=== PATIENT | female | born 1960 | race African-American/Black ===

== ENCOUNTER 2016-11-10 13:01 | Emergency (ER) | payer OTHER ==
[~2016-11-10] VITALS: Ht 162.6 cm; Wt 113.8 kg
[~2016-11-10 13:01] MED LIST: ALBUTEROL2.5 MG/0.5 INH; APAP650; ASPIRIN325 PO; BUPROPION HCL150 MG PO; CALCIUM-VITAMI1 EAC1 PO; CARVEDILOL3.125 MG; CARVEDILOL3.125 MG PO; CIPROFLOXACIN500 M1 PO; CLONAZEPAM 1 MG1 M1 PO; COLACE100 MG; DARVOCET-N 1001 EACH PO; DUONEB 2.5-0.5 M3 ML INH; EFFIENT10 MG; HCTZ; HUMALOG100 UNIT/1 SUBQ; HYDROXYZINE HCL50 MG PO; INDOMETHACIN 5050 M1 PO; LAMISIL AT 1% C12 G1 TP; LANTUS SC; LISINOPRIL10 MG PO; LISINOPRIL5 MG PO; LOSARTAN-HCTZ1 EAC3 PO; MYRBETRIQ25 MG PO; NASAL SPRAY30 ML NS; NORVASC 5 MG TAB5 MG PO; NOVOLOG100 UNIT/1 SQ; NYSTATIN 1100000 U/M PO; NYSTATIN-TRIAMC15 GM TOP; PROVENTIL HFA6.7 G1 INH; SIMVASTATIN40 MG; TESSALON PERLE100 MG PO; TOUJEO SOL300 UNIT/1 SQ; TRAMADOL 50 MG50 MG; TRIAMCINOLONE A80 G2 TOP; WELLBUTRIN SR200 MG PO; ZANTAC 150MG T150 MG PO; ZPAK PO
[2016-11-10 14:26] LABS: URINE BILIRUBIN NEGATIVE (Negative); URINE BLOOD 1+ (Negative); URINE COLOR YELLOW; URINE GLUCOSE-RANDOM* 3+ (Negative); URINE KETONES NEGATIVE (Negative); URINE NITRITE NEGATIVE (Negative); URINE PROTEIN (DIPSTICK) 2+ (Negative); URINE SPECIFIC GRAVITY 1.015 (1.003-1.035); URINE UROBILINOGEN 0.2 E.U./dl (0.2-1.0)
[2016-11-10 14:36] LABS: SQUAMOUS >10 Many /LPF (0-3)
[2016-11-10 14:37] LABS: BACTERIA >30 Many /HPF (None Seen); CASTS None Seen /LPF (None Seen); CRYSTALS None Seen /LPF (None Seen); URINE RBC 3-10 Few /HPF (0-2); URINE WBC >25 Many /HPF (0-5); YEAST Present (None Seen)
[2016-11-10 14:38] LABS: WBC CLUMPS Few (None Seen)
[2016-11-10 14:44] LABS: ABSOLUTE NEUTROPHILS 5.3 thou/uL (1.4-8.2); BASOPHILS 0.4 % (0.0-2.0); EOSINOPHILS 2.7 % (0.0-3.0); HEMATOCRIT 40.3 % (37.0-47.0); HEMOGLOBIN 13.6 gm/dL (12.0-15.0); LYMPHOCYTES 25.1 % (24.0-44.0); MCH 27.9 pg (26.0-34.0); MCHC 33.8 g/dL (28.0-37.0); MCV 82.4 fL (80.0-100.0); MONOCYTES 6.5 % (1.0-8.0); PLATELET COUNT 211 thou/uL (150-400); POLYS 65.3 % (36.0-66.0); RBC 4.89 mil/uL (4.20-5.00); RDW 13.3 % (10.5-14.5); WBC 8.2 thou/uL (4.0-11.0)
[2016-11-10 14:45] LABS: MANUAL DIFF NO
[2016-11-10 15:09] LABS: ALBUMIN 2.5 g/dL (3.4-5.0); ALKALINE PHOSPHATASE 165 U/L (46-116); ANION GAP 6 mmol/L (7-16); BUN 23 mg/dL (7-18); CALCIUM 9.6 mg/dL (8.5-10.1); CHLORIDE 98 mmol/L (98-107); CO2 29 mmol/L (21-32); DIRECT BILIRUBIN < 0.1 mg/dL (<0.1-0.3); POTASSIUM 3.7 mmol/L (3.5-5.1); SGOT 19 U/L (15-37); SGPT 31 U/L (30-65); SODIUM 133 mmol/L (136-145); TOTAL BILIRUBIN 0.4 mg/dL (<0.1-1.0); TOTAL PROTEIN 6.8 g/dL (6.4-8.2)
[2016-11-10 15:20] LABS: GLUCOSE 640 mg/dL (74-106)
[2016-11-10] MEDS ORDERED: CHILDREN'S ASPI81 MG PO (16:05)
[2016-11-10] MEDS ORDERED: LIPITOR80 MG PO (16:06)
[2016-11-10] MEDS ORDERED: COREG25 MG PO (16:08)
[2016-11-10] MEDS ORDERED: CLEOCIN T60 M1 TP (16:23)
[2016-11-10] MEDS ORDERED: CATAPRES0.2 MG PO (16:24)
[2016-11-10] MEDS ORDERED: GYNE-LOTRIMIN-745 GM TOP (16:26)
[2016-11-10] MEDS ORDERED: KEFLEX500 MG PO (16:44)
[2016-11-10 17:35] VITALS: BP 137/77
== END 2016-11-10 17:37 | disposition home or self-care (01) ==
LOC: ER 13:01
PROVIDERS: Emergency Medicine
DX: E11.65 Type 2 diabetes mellitus with hyperglycemia (principal); N39.0 Urinary tract infection, site not specified; I10 Essential (primary) hypertension; K21.9 Gastro-esophageal reflux disease without esophagitis; Z98.890 Other specified postprocedural states; Z88.5 Allergy status to narcotic agent; Z88.8 Allergy status to other drugs, medicaments and biological substances; Z79.4 Long term (current) use of insulin

== ENCOUNTER 2017-05-26 01:14 | Inpatient (IN) | payer OTHER ==
[~2017-05-26] VITALS: Ht 152.4 cm; Wt 112.8 kg
[2017-05-26] VITALS (8 sets, daily range): BP systolic 142–248; BP diastolic 63–145
--- NOTE | ~2017-05-26 | EKG ---
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
--- NOTE | ~2017-05-26 | EKG ---
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 : 1960 Requested By: Forrest Murphy Order Number: [id number] MD: Brock Corona Measurements Intervals [place] Rate: 95 P: 71 ND: 148 QRS: 60 QRSD: 93 T: 241 QT: 378 QTc: 475 Interpretive Statements Sinus rhythm Probable left atrial enlargement Probable anteroseptal infarct, age indeterminate Baseline wander in lead(s) V2 Compared to ECG 05/26/2017 01:52:09 No significant changes Electronically Signed On 05-26-2017 17:35:24 CDT by Brock Corona [email or web address] <ELECTRONICALLY SIGNED> By: Brock Corona MD, [facility] 05/26/17 1735 1440 1440 Brock Corona MD, [facility] /EPI
--- NOTE | ~2017-05-26 | HC ---
[facility] [address] CONSULTATION Name: BENI STRONG Room #: 201-P [facility] IN M.R.#: [id number] Admission: 05/26/17 Attend Phys: Asuncion Trimble Discharge: 05/28/17 Date of : 64 Report #: [id number] THIS REPORT FOR: //name// CC: SYDNEY physician/PCP Rudi Trimble REASON FOR CONSULTATION: Edema. REASON FOR PRESENTATION: Abdominal pain. HISTORY OF PRESENT ILLNESS: A 56-year-old with extensive past medical history including coronary artery disease status post stent placement; diabetes mellitus, long-term; and hypertension. She is also known to have diabetic retinopathy. She presented to the Emergency Room, complaining of abdominal pain and swelling. She also reported to chest congestions and wheezing. She was found to have an elevated blood pressure with all stigmata of diabetic retinopathy including +3 proteinuria, extremely elevated blood sugar, elevated cholesterol with low albumin at 1.7, all suggestive of diabetic nephropathy. Kidney function remains stable at 1.3. She tells me that she had been told in the past that she had mild kidney dysfunction at [facility]. The patient recently reported a visit to [facility], for which she had issues with a fibroid tumor. Her blood pressure medications were adjusted accordingly. It does look like that she ran out of her medications for about a week or so and she presented with hypertensive urgency. PAST MEDICAL HISTORY: 1. Hypothyroidism. 2. Long-standing diabetes mellitus with diabetic retinopathy. 3. Coronary artery disease. 4. Hypertension. 5. Noncompliance. MEDICATIONS: 1. Amlodipine. 2. Insulin. 3. Losartan/hydrochlorothiazide. 4. Atorvastatin. 5. Clindamycin. 6. Clonidine. ALLERGIES: SIMVASTATIN. SOCIAL HISTORY: She denies drug or alcohol abuse. FAMILY HISTORY: Very significant for very strong diabetes mellitus and hypertension. [facility] [address] [place] [address] CONSULTATION Name: BENI STRONG Room #: 201-P DIS IN M.R.#: [id number] Admission: 05/26/17 Attend Phys: Asuncion Trimble Discharge: 05/28/17 Date of : 64 Report #: [id number] REVIEW OF SYSTEMS: CONSTITUTIONAL: Weight gain. PULMONARY: Significant for wheezing. CARDIOVASCULAR: Significant for lower extremity edema. GASTROINTESTINAL: No nausea or vomiting. GENITOURINARY: No frequency, no urgency. SKIN: No rash or ulcerations. PHYSICAL EXAMINATION: GENERAL: She is alert, oriented. VITAL SIGNS: Pulse is 99: Blood pressures is 248/145. HEAD AND NECK: No jugular venous distention, no bruit or thyromegaly. CHEST: Clear to auscultation bilaterally. CARDIOVASCULAR: Regular with no rub. ABDOMEN: Soft, nontender. LOWER EXTREMITIES: +4 edema. LABORATORY DATA: Laboratory values reviewed. Creatinine stable at 1.3. Chest x-ray reviewed. ASSESSMENT, IMPRESSION AND PLAN: 1. Diabetic nephropathy. 2. Low albumin. 3. Fluid overload due to diabetic nephropathy. 4. Hypertension. 5. Diabetes mellitus. 6. Noncompliance. The picture is all consistent with diabetic nephropathy. 7. See my orders. We will augment her antiproteinuric regimen including losartan. 8. Aggressive diuresis. 9. Low salt. 10. Daily evaluate. 11. Check hemoglobin A1c. 12. We will continue to follow along and add other diuretics if needed. <ELECTRONICALLY SIGNED> By: Gisela Rubio MD 05/30/17 0641 1032 1232 Gisela Rubio MD /nt
--- NOTE | ~2017-05-26 | 2DMMODE ---
[facility] [address] [place] [address] 2 D/M-MODE ECHOCARDIOGRAM Name: BENI STRONG Room #: 201-P ADM IN M.R.#: [id number] Admission: 05/26/17 Attend Phys: Asuncion Ceron Discharge: Date of : 64 Date of Service: 05/26/17 1119 Report #: [id number] THIS REPORT FOR: //name// APPROVED REPORT Study performed: 05/26/2017 09:47:07 EXAM: Comprehensive 2D, Doppler, and color-flow Echocardiogram Patient Location: Echo lab Room #: 201 Status: routine BSA: 2.14 HR: 93 bpm BP: 191/107 mmHg Rhythm: NSR Other Information Study Quality: Adequate Indications Diabetes Hypertension/HDD 2D Dimensions RVDd: 38.14 mm LVEF(%): 56.98 (>50%) IVSd: 17.58 (7-11mm) LVOT Diam: 19.31 (18-24mm) LVDd: 46.29 mm PWd: 15.91 (7-11mm) Ascending Ao: 32.86 (22-36mm) LVDs: 32.49 (25-40mm) Aortic Root: 28.92 mm IVC: 13.00 mm Escoto's LVEF: 56.98 % Volumes Left Atrial Volume (Systole) Single Plane 4CH: 65.58 mL Single Plane 2CH: 63.27 mL LA ESV Index: 32.00 mL/m2 Aortic Valve AoV Peak David.: 2.21 m/s AO Peak Gr.: 30.72 mmHg LVOT Max P.32 mmHg LVOT Max V: 1.15 m/s DILIP Vmax: 1.53 cm2 Mitral Valve E/A Ratio: 0.9 [facility] [address] [place] [address] 2 D/M-MODE ECHOCARDIOGRAM Name: [facility] Room #: 201-P [facility] IN .R.#: [id number] Admission: 05/26/17 Attend Phys: Asuncion Ceron Discharge: Date of : 64 Date of Service: 05/26/17 1119 Report #: [id number] Decel. Time: 150.55 ms MV E Max David.: 0.86 m/s MV A David.: 0.91 m/s MV PHT: 43.66 ms IVRT: 101.50 ms Pulmonary Valve PV Peak David.: 1.10 m/s PV Peak Gr.: 4.88 mmHg Tricuspid Valve TR Peak David.: 2.90 m/s RAP Estimate: 5.00 mmHg TR Peak Gr.: 33.56 mmHg PA Pressure: 39.00 mmHg Left Ventricle The left ventricle is normal size. Moderate concentric left ventricular hypertrophy. The left ventricular systolic function is normal. LVEF is 55-60%. Mild diastolic dysfunction is present (impaired relaxation pattern). Right Ventricle The right ventricle is normal size. The right ventricular systolic function is normal. Atria Left atrium is dilated. Right atrium is dilated. Aortic Valve The Aortic valve is sclerotic. No aortic regurgitation is present. There is no aortic valvular stenosis. Mitral Valve Mitral valve leaflets are mildly thickened. Mild mitral regurgitation. No evidence of mitral valve stenosis. Tricuspid Valve The tricuspid valve is normal in structure. Mild tricuspid regurgitation. Estimated PAP 39 mmHg. Pulmonic Valve The pulmonary valve is normal in structure. There is no pulmonic valvular regurgitation. Great Vessels The aortic root is normal in size. The ascending aorta is normal in size. IVC is normal in size and collapses >50% with [facility] [address] [place] [address] 2 D/M-MODE ECHOCARDIOGRAM Name: [facility] Room #: 201-P [facility] IN M.R.#: [id number] Admission: 05/26/17 Attend Phys: Asuncion Ceron Discharge: Date of : 64 Date of Service: 05/26/17 1119 Report #: [id number] inspiration. Pericardium There is no pericardial effusion. <Conclusion> The left ventricle is normal size. LVEF is 55-60%. Left atrium is dilated. Right atrium is dilated. The Aortic valve is sclerotic. Mitral valve leaflets are mildly thickened. Mild mitral regurgitation. The tricuspid valve is normal in structure. Mild tricuspid regurgitation. Estimated PAP 39 mmHg. The pulmonary valve is normal in structure. There is no pericardial effusion. <ELECTRONICALLY SIGNED> By: Saroj Watt MD 05/26/17 1119 1119 111 Saroj Watt MD /INF
[~2017-05-26 01:14] MED LIST changes: +CATAPRES0.2 MG PO; +CHILDREN'S ASPI81 MG PO; +CLEOCIN T60 M1 TP; +COREG25 MG PO; +GYNE-LOTRIMIN-745 GM TOP; +KEFLEX500 MG PO; +LIPITOR80 MG PO
[2017-05-26 01:53] LABS: URINE BILIRUBIN NEGATIVE (Negative); URINE BLOOD 1+ (Negative); URINE CLARITY CLEAR; URINE COLOR YELLOW; URINE GLUCOSE-RANDOM* 3+ (Negative); URINE KETONES NEGATIVE (Negative); URINE LEUKOCYTES-REFLEX NEGATIVE (Negative); URINE NITRITE-REFLEX NEGATIVE (Negative); URINE PROTEIN (DIPSTICK) 3+ (Negative); URINE SPECIFIC GRAVITY 1.015 (1.005-1.035); URINE UROBILINOGEN 0.2 E.U./dl (0.2-1.0)
[2017-05-26 02:09] LABS: BACTERIA-REFLEX None Seen /HPF (None Seen); CASTS None Seen /LPF (None Seen); CRYSTALS None Seen /LPF (None Seen); MUCUS None Seen strn/LPF (None Seen); SQUAMOUS None Seen /LPF (0-3); URINE RBC 0-2 Rare /HPF (0-2); URINE WBC-REFLEX None Seen /HPF (0-5)
[2017-05-26 02:12] LABS: ABSOLUTE NEUTROPHILS 3.9 thou/uL (1.4-8.2); BASOPHILS 0.5 % (0.0-2.0); EOSINOPHILS 1.7 % (0.0-3.0); HEMATOCRIT 36.3 % (37.0-47.0); HEMOGLOBIN 12.2 gm/dL (12.0-15.0); LYMPHOCYTES 30.3 % (24.0-44.0); MCH 27.8 pg (26.0-34.0); MCHC 33.7 g/dL (28.0-37.0); MCV 82.4 fL (80.0-100.0); MONOCYTES 10.5 % (1.0-8.0); PLATELET COUNT 228 thou/uL (150-400); RBC 4.41 mil/uL (4.20-5.00); RDW 13.2 % (10.5-14.5); WBC 6.9 thou/uL (4.0-11.0)
[2017-05-26 02:16] LABS: AMP/METHAMP Negative (Negative); BARBITURATES Negative (Negative); BENZODIAZEPINES Negative (Negative); COCAINE Negative (Negative); METHADONE Negative (Negative); OPIATES Negative (Negative); PCP Negative (Negative)
[2017-05-26 02:23] LABS: CALCIUM 8.7 mg/dL (8.5-10.1); CREATININE 1.3 mg/dL (0.6-1.0); POTASSIUM 3.8 mmol/L (3.5-5.1)
[2017-05-26 02:27] LABS: APTT 26.8 Seconds (24.5-32.8); PROTIME 9.9 Seconds (9.3-11.4)
[2017-05-26 02:29] LABS: ALBUMIN 1.7 g/dL (3.4-5.0); MAGNESIUM 1.7 mg/dL (1.8-2.4); TOTAL BILIRUBIN 0.2 mg/dL (<0.1-1.0); TOTAL PROTEIN 5.6 g/dL (6.4-8.2); TROPONIN-I 0.04 ng/mL (<0.06)
[2017-05-26 08:19] LABS: CHOLESTEROL 373 mg/dL (<200); HDL CHOLESTEROL 62 mg/dL (>40); LDL CHOLESTEROL 263 mg/dL (<100); TRIGLYCERIDE 240 mg/dL (<150); VLDL 48 mg/dL (<40)
[2017-05-26 12:34] LABS: URINE BILIRUBIN NEGATIVE (Negative); URINE BLOOD TRACE (Negative); URINE CLARITY CLEAR; URINE COLOR YELLOW; URINE GLUCOSE-RANDOM* 3+ (Negative); URINE KETONES NEGATIVE (Negative); URINE LEUKOCYTES NEGATIVE (Negative); URINE NITRITE NEGATIVE (Negative); URINE PROTEIN (DIPSTICK) 3+ (Negative); URINE UROBILINOGEN 0.2 E.U./dl (0.2-1.0)
[2017-05-26 12:47] LABS: BACTERIA 1-9 Few /HPF (None Seen); CRYSTALS None Seen /LPF (None Seen); HYALINE CASTS 0-3 Few /LPF (None Seen); SQUAMOUS None Seen /LPF (0-3); URINE RBC 0-2 Rare /HPF (0-2); URINE WBC 0-5 Rare /HPF (0-5)
[2017-05-26 12:59] LABS: URINE PROTEIN-RANDOM* 882.7 mg/dL (<11.9)
[2017-05-26 17:14] LABS: GLYCOHEMOGLOBIN (HGB A1C) 15.8 % (4.8-5.6)
[2017-05-26 19:08] LABS: IgA 252 mg/dL (87-352); IgG 433 mg/dL (700-1600); IgM 46 mg/dL (26-217)
[2017-05-27] VITALS (8 sets, daily range): BP systolic 136–218; BP diastolic 73–120
[2017-05-27 08:02] LABS: ALBUMIN 1.7 g/dL (3.4-5.0); CALCIUM 8.5 mg/dL (8.5-10.1); CREATININE 1.2 mg/dL (0.6-1.0); PHOSPHORUS 4.6 mg/dL (2.5-4.9); POTASSIUM 4.1 mmol/L (3.5-5.1)
[2017-05-27] MEDS ORDERED: COZAAR100 MG PO (15:24)
[2017-05-27] MEDS ORDERED: ASPIRIN325 PO (15:24)
[2017-05-27] MEDS ORDERED: PEPCID20 MG PO (15:24)
[2017-05-27] MEDS ORDERED: CLONIDINE0.1 PO (15:24)
[2017-05-27] MEDS ORDERED: CARVEDILOL3.125 MG PO (15:24)
[2017-05-27] MEDS ORDERED: NOVOLOG100 UNIT/1 SUBQ (15:24)
[2017-05-27] MEDS ORDERED: LIPITOR80 MG PO (15:26)
[2017-05-27] MEDS ORDERED: LASIX 40 MG TAB40 M2 PO (15:37)
[2017-05-27] MEDS ORDERED: LANCETS (15:37)
[2017-05-27] MEDS ORDERED: ALDACTONE25 MG PO (15:38)
[2017-05-28 04:06] LABS: COMPLEMENT-C3 139 mg/dL (82-167); COMPLEMENT-C4 37 mg/dL (14-44)
[2017-05-28 04:36] VITALS: BP 169/78
[2017-05-28 05:08] LABS: HEPATITIS B SURFACE AG Negative (Negative)
[2017-05-28 08:28] VITALS: BP 150/93
[2017-05-28 09:31] LABS: ALBUMIN 1.7 g/dL (3.4-5.0); CALCIUM 8.6 mg/dL (8.5-10.1); CREATININE 1.3 mg/dL (0.6-1.0); PHOSPHORUS 5.1 mg/dL (2.5-4.9); POTASSIUM 4.1 mmol/L (3.5-5.1)
[2017-05-28 09:57] VITALS: BP 150/93
[2017-05-28 11:05] VITALS: BP 137/75
[2017-05-28 15:42] VITALS: BP 150/93
[2017-05-30 13:08] LABS: ANA INTERPRETATION Negative (Negative)
[2017-05-30 14:10] LABS: GLOBULIN TOTAL 2.7 g/dL (2.2-3.9); M-SPIKE Not Observed g/dL (Not Observed)
[2017-05-30 14:10] LABS: KAPPA FREE LIGHT CHAINS 51.9 mg/L (3.3-19.4); KAPPA/LAMBDA RATIO 1.61 (0.26-1.65); LAMBDA FREE LIGHT CHAINS 32.2 mg/L (5.7-26.3)
== END 2017-05-28 16:12 | disposition home or self-care (01) | DRG 698 ==
LOC: ER 01:14 → EROBS 02:50 → 2N 04:25
PROVIDERS: Emergency Medicine; Hospitalist; Nurse Practitioner Acute Care
DX: E11.21 Type 2 diabetes mellitus with diabetic nephropathy (principal); E43 Unspecified severe protein-calorie malnutrition; Z68.42 Body mass index [BMI] 45.0-49.9, adult; E11.65 Type 2 diabetes mellitus with hyperglycemia; I10 Essential (primary) hypertension; G89.29 Other chronic pain; R10.9 Unspecified abdominal pain; E88.09 Other disorders of plasma-protein metabolism, not elsewhere classified; E03.9 Hypothyroidism, unspecified; E11.319 Type 2 diabetes mellitus with unspecified diabetic retinopathy without macular edema; I25.10 Atherosclerotic heart disease of native coronary artery without angina pectoris; E87.70 Fluid overload, unspecified; E78.5 Hyperlipidemia, unspecified; F41.9 Anxiety disorder, unspecified; G47.33 Obstructive sleep apnea (adult) (pediatric); K21.9 Gastro-esophageal reflux disease without esophagitis; I16.0 Hypertensive urgency; D25.9 Leiomyoma of uterus, unspecified; E83.42 Hypomagnesemia; E66.9 Obesity, unspecified; Z91.14 Patient's other noncompliance with medication regimen; Z71.3 Dietary counseling and surveillance; Z88.8 Allergy status to other drugs, medicaments and biological substances; Z88.6 Allergy status to analgesic agent; Z95.5 Presence of coronary angioplasty implant and graft; Z79.899 Other long term (current) drug therapy
CPT/HCPCS: 10081

== ENCOUNTER 2017-06-30 06:41 | Inpatient (IN) | payer OTHER ==
[~2017-06-30] VITALS: Ht 162.6 cm; Wt 50.8 kg
[2017-06-30] VITALS (16 sets, daily range): BP systolic 121–253; BP diastolic 60–143
--- NOTE | ~2017-06-30 | EKG ---
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[facility] : 1960 Requested By: Maria Luz Luis Order Number: [id number] MD: Farhat Higgins Measurements Intervals [place] Rate: 92 P: 63 NV: 165 QRS: 56 QRSD: 86 T: 220 QT: 351 QTc: 435 Interpretive Statements Sinus rhythm Probable left atrial enlargement Probable anteroseptal infarct, recent Compared to ECG 05/26/2017 14:40:44 No significant changes Electronically Signed On 06-30-2017 16:16:31 CDT by Farhat Higgins [email or web address] <ELECTRONICALLY SIGNED> By: Farhat Higgins MD 06/30/17 1616 1018 Farhat Higgins MD /JOSE DANIEL
[~2017-06-30 06:41] MED LIST changes: +ALDACTONE25 MG PO; +CLONIDINE0.1 PO; +COZAAR100 MG PO; +LANCETS; +LASIX 40 MG TAB40 M2 PO; +NOVOLOG100 UNIT/1 SUBQ; +PEPCID20 MG PO
[2017-06-30 07:06] LABS: ABSOLUTE NEUTROPHILS 4.5 thou/uL (1.4-8.2); BASOPHILS 0.9 % (0.0-2.0); EOSINOPHILS 1.3 % (0.0-3.0); HEMATOCRIT 37.4 % (37.0-47.0); HEMOGLOBIN 12.9 gm/dL (12.0-15.0); LYMPHOCYTES 33.3 % (24.0-44.0); MCH 28.4 pg (26.0-34.0); MCHC 34.4 g/dL (28.0-37.0); MCV 82.4 fL (80.0-100.0); MONOCYTES 9.3 % (1.0-8.0); PLATELET COUNT 247 thou/uL (150-400); POLYS 55.2 % (36.0-66.0); RBC 4.54 mil/uL (4.20-5.00); RDW 12.9 % (10.5-14.5); WBC 8.1 thou/uL (4.0-11.0)
[2017-06-30 07:16] LABS: ANION GAP 8 mmol/L (7-16); BUN 20 mg/dL (7-18); CALCIUM 8.9 mg/dL (8.5-10.1); CHLORIDE 103 mmol/L (98-107); CO2 28 mmol/L (21-32); CREATININE 1.3 mg/dL (0.6-1.0); GLUCOSE 440 mg/dL (74-106); POTASSIUM 3.8 mmol/L (3.5-5.1); SODIUM 139 mmol/L (136-145)
[2017-06-30 07:22] LABS: ALBUMIN 2.2 g/dL (3.4-5.0); DIRECT BILIRUBIN < 0.1 mg/dL (<0.1-0.3); SGOT 55 U/L (15-37); SGPT 61 U/L (30-65); TOTAL BILIRUBIN 0.4 mg/dL (<0.1-1.0); TOTAL PROTEIN 5.8 g/dL (6.4-8.2)
[2017-06-30 07:31] LABS: URINE BILIRUBIN NEGATIVE (Negative); URINE BLOOD 1+ (Negative); URINE CLARITY CLEAR; URINE COLOR YELLOW; URINE GLUCOSE-RANDOM* 3+ (Negative); URINE KETONES NEGATIVE (Negative); URINE LEUKOCYTES NEGATIVE (Negative); URINE NITRITE NEGATIVE (Negative); URINE PROTEIN (DIPSTICK) 3+ (Negative); URINE UROBILINOGEN 0.2 E.U./dl (0.2-1.0)
[2017-06-30 07:49] LABS: CASTS None Seen /LPF (None Seen); SQUAMOUS 0-3 Few /LPF (0-3); URINE RBC 3-10 Few /HPF (0-2); URINE WBC 0-5 Rare /HPF (0-5)
[2017-06-30 07:50] LABS: CRYSTALS None Seen /LPF (None Seen)
[2017-07-01 04:21] LABS: CALCIUM 8.3 mg/dL (8.5-10.1); CREATININE 1.4 mg/dL (0.6-1.0); POTASSIUM 3.2 mmol/L (3.5-5.1)
[2017-07-01 04:30] LABS: ALBUMIN 1.7 g/dL (3.4-5.0); PHOSPHORUS 4.4 mg/dL (2.5-4.9); TROPONIN-I 0.06 ng/mL (<0.06)
[2017-07-01 04:51] VITALS: BP 162/99
[2017-07-01 07:30] VITALS: BP 161/93
[2017-07-01] MEDS ORDERED: LABETALOL HCL200 MG PO (09:20)
[2017-07-01] MEDS ORDERED: GLYBURIDE 5 MG T5 M1 PO ×2 (09:21→09:24)
[2017-07-01] MEDS ORDERED: COZAAR100 MG PO (09:21)
[2017-07-01 11:40] VITALS: BP 176/102
[2017-07-01 13:08] VITALS: BP 176/102
[2017-07-01 14:13] VITALS: BP 176/102
== END 2017-07-01 14:05 | disposition home or self-care (01) | DRG 305 ==
LOC: ER 06:41 → EROBS 09:11 → ICU 09:11 → 2N 22:21 → ENTRNSPT 07-01 13:58 → EDTRNSPTSTS 07-01 14:02 → 2N 07-01 14:05
PROVIDERS: Emergency Medicine; Hospitalist
DX: I16.0 Hypertensive urgency (principal); Z68.1 Body mass index [BMI] 19.9 or less, adult; I10 Essential (primary) hypertension; E66.9 Obesity, unspecified; F41.9 Anxiety disorder, unspecified; J45.909 Unspecified asthma, uncomplicated; K59.00 Constipation, unspecified; E83.42 Hypomagnesemia; E11.65 Type 2 diabetes mellitus with hyperglycemia; K21.9 Gastro-esophageal reflux disease without esophagitis; G89.29 Other chronic pain; R10.9 Unspecified abdominal pain; I25.2 Old myocardial infarction; Z95.5 Presence of coronary angioplasty implant and graft; Z79.899 Other long term (current) drug therapy; Z91.19 Patient's noncompliance with other medical treatment and regimen; Z88.5 Allergy status to narcotic agent; Z88.8 Allergy status to other drugs, medicaments and biological substances
CPT/HCPCS: 10081

== ENCOUNTER 2017-07-17 03:05 | Inpatient (IN) | payer OTHER ==
[2017-07-17] VITALS (7 sets, daily range): BP systolic 143–214; BP diastolic 88–125
[~2017-07-17] VITALS: Ht 162.6 cm; Wt 108.9 kg
--- NOTE | ~2017-07-17 | EKG ---
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 : 1960 Requested By: Jamie Rogers Order Number: [id number] MD: Joel Medel Measurements Intervals [place] Rate: 97 P: 64 LA: 151 QRS: 44 QRSD: 93 T: 156 QT: 369 QTc: 469 Interpretive Statements Sinus rhythm Left atrial enlargement Anterior infarct, old Nonspecific T abnormalities, lateral leads Compared to ECG 06/30/2017 10:18:19 T-wave abnormality now present Myocardial infarct finding still present Electronically Signed On 07-17-2017 12:58:59 CDT by Joel Medel [email or web address] <ELECTRONICALLY SIGNED> By: Joel Medel MD 07/17/17 1258 5 Joel Medel MD /JOSE DANIEL
--- NOTE | ~2017-07-17 | HC ---
[facility] [place] [address] CONSULTATION Name: BENI STRONG Room #: 215-P ADM IN M.R.#: [id number] Admission: 07/17/17 Attend Phys: Juan Leyva MD Discharge: Date of : 64 Report #: [id number] THIS REPORT FOR: //name// CC: FAM unknown Juan Leyva REASON FOR CONSULTATION: Edema and hypertension. REASON FOR THE PRESENTATION: Chest pain. HISTORY OF PRESENT ILLNESS: Well-known patient to me. She is a 56-year-old with extensive past medical history including diabetes mellitus, hypertension, hyperlipidemia, coronary artery disease, diabetic retinopathy and diabetic nephropathy. She is well known to have extreme noncompliance. She presented yesterday with chest pain. She was found to have hypertensive urgency. She denies any palpitation. She was started on Cardene drip. Apparently, the patient does not know any of her medications. She does not take any of her medications. She lacks social support. Most recent hemoglobin A1c is 15.8. She has very poor insight of her medical problems. When evaluated in the last admission, she has [id number] creatinine. However, she had very significant proteinuria. The major issue here is the noncompliance with her diet, lack of social and financial support. She is being admitted to manage her ongoing edema and hypertensive urgencies. PAST MEDICAL HISTORY: 1. Diabetes mellitus. 2. Diabetic retinopathy. 3. Diabetic skin changes. 4. Coronary artery disease. 5. Hypertension. 6. Noncompliance. 7. Hypothyroidism. ALLERGIES: SIMVASTATIN. SOCIAL HISTORY: She denies drug or alcohol abuse. FAMILY HISTORY: Very strong diabetes mellitus and hypertension. PAST SURGICAL HISTORY: 1. EGD. 2. Post-cardiac stenting. 3. . REVIEW OF SYSTEMS: GENERAL: No fever or chills. CARDIOVASCULAR: Occasional chest pain, as stated above. [facility] [address] [place] [address] CONSULTATION Name: BENI STRONG Room #: 215-P ADM IN ..#: [id number] Admission: 07/17/17 Attend Phys: Juan Leyva MD Discharge: Date of : 64 Report #: [id number] PULMONARY: Occasional shortness of breath. GASTROINTESTINAL: No nausea or vomiting. GENITOURINARY: No frequency, no urgency. SKIN: Changes on the lower extremities, related to her long diabetes mellitus. MEDICATIONS: Listed amongst her medications are the followin. Atorvastatin. 2. Labetalol. 3. Losartan. 4. Glyburide. PHYSICAL EXAMINATION: GENERAL: Alert, oriented, in no apparent distress. VITAL SIGNS: Blood pressure 197/108. HEAD AND NECK: No jugular venous distention, no bruit, no thyromegaly. CHEST: Decreased air entry bilaterally. CARDIOVASCULAR: Distant with no rub. ABDOMEN: Soft, nontender with abdominal wall edema. EXTREMITIES: Lower extremities, +3 edema. LABORATORY DATA: Laboratory values reviewed. Potassium is 3.4, creatinine is 1.1. Hemoglobin is 11.5. Workup previously done back in May including a renal ultrasound. The rest of the laboratory values were reviewed. ASSESSMENT, IMPRESSION AND PLAN: 1. Diabetes mellitus with diabetic nephropathy. 2. Hypertensive urgency. 3. Extreme noncompliance. 4. Edema. 5. This is all diabetic-related nephropathy. I had a lengthy discussion with the patient regarding her blood pressure, edema. She needs to take her medications. I will make some adjustment to keep her on losartan, high-dose torsemide and Aldactone to try to minimize her proteinuria and help her edema. Fluid and salt restriction is mandatory. 6. Minimize vasodilator therapy. As for now, she is okay to be on Norvasc and carvedilol. Avoid clonidine, hydralazine and minoxidil as those are well known to cause lower extremity edema. When we control her volume and she controls her fluid and salt restriction, it is definite that her blood pressure will improve. 7. Replace electrolytes. 8. Need very strong social and financial support. By: 1001 1320 Gisela Rubio MD /fadi
[~2017-07-17 03:05] MED LIST changes: +GLYBURIDE 5 MG T5 M1 PO; +LABETALOL HCL200 MG PO
[2017-07-17] MEDS ORDERED: NIACIN50 MG PO (03:37)
[2017-07-17 03:49] LABS: ABSOLUTE NEUTROPHILS 4.9 thou/uL (1.4-8.2); BASOPHILS 0.4 % (0.0-2.0); EOSINOPHILS 1.9 % (0.0-3.0); HEMOGLOBIN 11.2 gm/dL (12.0-15.0); LYMPHOCYTES 34.4 % (24.0-44.0); MCH 28.3 pg (26.0-34.0); MCHC 34.1 g/dL (28.0-37.0); MCV 83.1 fL (80.0-100.0); MONOCYTES 8.9 % (1.0-8.0); PLATELET COUNT 211 thou/uL (150-400); POLYS 54.4 % (36.0-66.0); RBC 3.97 mil/uL (4.20-5.00)
[2017-07-17 03:56] LABS: ANION GAP 6 mmol/L (7-16); BUN 14 mg/dL (7-18); CALCIUM 8.6 mg/dL (8.5-10.1); CHLORIDE 107 mmol/L (98-107); CO2 29 mmol/L (21-32); CREATININE 1.2 mg/dL (0.6-1.0); GLUCOSE 290 mg/dL (74-106); POTASSIUM 3.5 mmol/L (3.5-5.1); SODIUM 142 mmol/L (136-145)
[2017-07-17 04:05] LABS: TROPONIN-I < 0.04 ng/mL (<0.06)
[2017-07-17 05:51] LABS: CHOLESTEROL 227 mg/dL (<200); HDL CHOLESTEROL 71 mg/dL (>40); LDL CHOLESTEROL 133 mg/dL (<100); TC:HDL 3.2 Ratio (Not establshd); TRIGLYCERIDE 116 mg/dL (<150); VLDL 23 mg/dL (<40)
[2017-07-17 05:53] LABS: SERUM ASSESSMENT Clear
[2017-07-18] VITALS (9 sets, daily range): BP systolic 176–235; BP diastolic 90–129
[2017-07-18 03:15] LABS: HEMATOCRIT 34.1 % (37.0-47.0); HEMOGLOBIN 11.4 gm/dL (12.0-15.0); MCH 28.1 pg (26.0-34.0); MCHC 33.4 g/dL (28.0-37.0); MCV 84.1 fL (80.0-100.0); RBC 4.06 mil/uL (4.20-5.00); RDW 13.5 % (10.5-14.5); WBC 9.7 thou/uL (4.0-11.0)
[2017-07-18 03:20] LABS: CALCIUM 8.1 mg/dL (8.5-10.1); CREATININE 1.2 mg/dL (0.6-1.0); POTASSIUM 3.5 mmol/L (3.5-5.1)
[2017-07-18] MEDS ORDERED: PROBIOTIC1 EAC1 PO (09:47)
[2017-07-18] MEDS ORDERED: ACETAMINOPHEN500 M1 PO (09:49)
[2017-07-19 00:36] VITALS: BP 183/100
[2017-07-19 02:26] VITALS: BP 183/107
[2017-07-19 04:31] LABS: CALCIUM 8.4 mg/dL (8.5-10.1); CREATININE 1.1 mg/dL (0.6-1.0); POTASSIUM 3.4 mmol/L (3.5-5.1)
[2017-07-19 04:40] LABS: HEMATOCRIT 33.4 % (37.0-47.0); HEMOGLOBIN 11.5 gm/dL (12.0-15.0); MCH 28.2 pg (26.0-34.0); MCHC 34.5 g/dL (28.0-37.0); RBC 4.07 mil/uL (4.20-5.00); RDW 13.3 % (10.5-14.5); WBC 7.7 thou/uL (4.0-11.0)
[2017-07-19 04:45] VITALS: BP 220/131
[2017-07-19 05:50] VITALS: BP 186/90
[2017-07-19 07:44] VITALS: BP 197/108
[2017-07-19 11:18] VITALS: BP 195/107
== END 2017-07-19 13:00 | disposition left against medical advice (07) | DRG 699 ==
LOC: ER 03:05 → EROBS 04:52 → 2N 07:29
PROVIDERS: Emergency Medicine; Hospitalist; Nurse Practitioner Family
DX: E11.21 Type 2 diabetes mellitus with diabetic nephropathy (principal); N39.0 Urinary tract infection, site not specified; Z68.41 Body mass index [BMI] 40.0-44.9, adult; I16.0 Hypertensive urgency; R80.8 Other proteinuria; I10 Essential (primary) hypertension; Z91.19 Patient's noncompliance with other medical treatment and regimen; I25.10 Atherosclerotic heart disease of native coronary artery without angina pectoris; Z95.5 Presence of coronary angioplasty implant and graft; K21.9 Gastro-esophageal reflux disease without esophagitis; E78.5 Hyperlipidemia, unspecified; E66.9 Obesity, unspecified; E11.65 Type 2 diabetes mellitus with hyperglycemia; D25.9 Leiomyoma of uterus, unspecified; Z79.4 Long term (current) use of insulin; G47.33 Obstructive sleep apnea (adult) (pediatric); Z53.21 Procedure and treatment not carried out due to patient leaving prior to being seen by health care provider; Z88.8 Allergy status to other drugs, medicaments and biological substances; Z83.3 Family history of diabetes mellitus; Z82.49 Family history of ischemic heart disease and other diseases of the circulatory system
CPT/HCPCS: 10081